=== PATIENT | female | born 1980 | race Two or more races ===

== ENCOUNTER 2017-04-02 09:42 | Emergency (ER) | payer BC, OTHER ==
[~2017-04-02] VITALS: Ht 162.6 cm; Wt 86.2 kg
[2017-04-02 10:27] VITALS: BP 131/94
[2017-04-02] MEDS ORDERED: KETOROLAC TROMETH 60MG/2ML VIAL IM ONE (11:00)
[2017-04-02] MEDS ORDERED: ONDANSETRON ODT 4 MG TAB PO ONE (11:00)
== END 2017-04-02 11:15 | disposition home or self-care (01) ==
LOC: ER 09:42 → EDBD 09:42 → ER 11:15
DX: R51 Headache (principal); R42 Dizziness and giddiness; R53.1 Weakness; R11.0 Nausea; Z90.710 Acquired absence of both cervix and uterus; Z90.49 Acquired absence of other specified parts of digestive tract
CPT/HCPCS: 70450; 96372; 99284; J1885; Q0162

== ENCOUNTER 2017-08-27 09:50 | Emergency (ER) | payer BC, MEDICAID ==
[~2017-08-27] VITALS: Ht 162.6 cm; Wt 89.4 kg
[2017-08-27 10:08] VITALS: BP 143/87
== END 2017-08-27 11:53 | disposition home or self-care (01) ==
LOC: ER 09:50
DX: N64.4 Mastodynia (principal); Z90.49 Acquired absence of other specified parts of digestive tract; Z90.710 Acquired absence of both cervix and uterus; Z88.8 Allergy status to other drugs, medicaments and biological substances
CPT/HCPCS: 76642

== ENCOUNTER → 2018-01-06 | Outpatient (CLI) | payer BC, MEDICAID ==
[2018-01-06 09:19] LABS: Basophils # (auto) 0 uL; Basophils % (auto) 0.6 % (0.0-2.0); Eosinophils # (auto) 0.1 uL; Eosinophils % (auto) 1.6 % (0.0-7.0); Hematocrit 38.9 % (36.0-46.0); Hemoglobin 12.9 g/dL (12.2-16.2); Lymphocytes % (auto) 29.9 % (10.0-50.0); Mean Corpuscular Hgb Conc. 33.2 g/dL (32.0-36.0); Mean Corpuscular Volume 84.3 fL (80.0-100.0); Monocytes # (auto) 0.3 uL; Monocytes % (auto) 4.6 % (0.0-12.0); Neutrophils # (auto) 4.3 uL; Neutrophils % (auto) 63.3 % (37.0-80.0); Platelet Count (auto) 266 10^3/uL (140-450); Red Blood Cells 4.61 10^6/uL (4.0-5.20); Red Cell Distribution Width 14.1 % (11.8-14.3); White Blood Cell 6.7 10^3/uL (4.4-10.8)
[2018-01-06 09:22] LABS: Urine Bacteria NONE SEEN /hpf (None Seen); Urine Blood TRACE /uL (Negative); Urine Mucus FEW (None Seen); Urine Specific Gravity 1.029 (1.001-1.035); Urine WBC 1 /hpf (0 - 5)
[2018-01-06 10:09] LABS: Albumin 3.9 g/dL (3.4-5.0); BUN/Creatinine Ratio 14.7; Bilirubin, Total 0.6 mg/dL (0.2-1.0); Calcium 8.8 mg/dL (8.5-10.1); Potassium 4.3 mmol/L (3.5-5.1); Total Protein 7.5 g/dL (6.4-8.2)
[2018-01-06 10:13] LABS: Follicle Stimulating Hormone 7.49 IU/L (SEE BELOW); Free T4 (Free Thyroxine) 1.12 ng/dL (0.89-1.76)
== END | disposition home or self-care (01) ==
LOC: LAB 08:03
PROVIDERS: ATTEND Internal Medicine
DX: R23.2 Flushing (principal); E11.9 Type 2 diabetes mellitus without complications; E78.00 Pure hypercholesterolemia, unspecified; E03.9 Hypothyroidism, unspecified; N18.2 Chronic kidney disease, stage 2 (mild)
CPT/HCPCS: 36415; 80053; 80061; 81001; 83001; 83036; 84439; 84443; 85025; 85652

== ENCOUNTER → 2018-01-09 | Outpatient (CLI) | payer BC, MEDICAID | END | disposition home or self-care (01) | LOC: LAB 09:36 | PROVIDERS: ATTEND Internal Medicine | DX: E11.22 Type 2 diabetes mellitus with diabetic chronic kidney disease (principal); N18.2 Chronic kidney disease, stage 2 (mild); E03.9 Hypothyroidism, unspecified; E78.00 Pure hypercholesterolemia, unspecified | CPT/HCPCS: 36415; 83036 ==

== ENCOUNTER 2018-10-06 08:57 | Emergency (ER) | payer BC ==
[~2018-10-06] VITALS: Ht 162.6 cm; Wt 86.2 kg
[2018-10-06 09:04] VITALS: BP 119/99
[2018-10-06] MEDS ORDERED: METHOCARBAMOL 500 MG TAB PO ONE (09:15)
[2018-10-06] MEDS ORDERED: HYDROcodone-ACET 5/325MG TAB PO ONE (09:15)
[2018-10-06] MEDS ORDERED: KETOROLAC TROMETH 60MG/2ML VIAL IM ONE (09:15)
== END 2018-10-06 10:12 | disposition home or self-care (01) ==
LOC: ER 08:57
DX: M54.5 Low back pain (principal); E11.9 Type 2 diabetes mellitus without complications; I10 Essential (primary) hypertension; Z90.710 Acquired absence of both cervix and uterus; Z90.49 Acquired absence of other specified parts of digestive tract; Z88.6 Allergy status to analgesic agent
CPT/HCPCS: 72100

== ENCOUNTER → 2019-02-10 | Outpatient (CLI) | payer BC, OTHER, MEDICAID ==
[2019-02-10 08:20] LABS: Cholesterol 209 mg/dL (< 200); HDL Cholesterol 50 mg/dL (40-59); LDL Cholesterol 131 mg/dL (< 100); Triglycerides 236 mg/dL (< 150)
== END | disposition home or self-care (01) ==
LOC: LAB 07:14
PROVIDERS: ATTEND Internal Medicine
DX: E11.9 Type 2 diabetes mellitus without complications (principal)
CPT/HCPCS: 36415; 80061; 83036

== ENCOUNTER → 2020-02-09 | Outpatient (CLI) | payer BC ==
[2020-02-09 07:38] LABS: Basophils # (auto) 0.1 10 ^3/uL (0-0.2); Eosinophils # (auto) 0.2 10 ^3/uL (0-0.8); Eosinophils % (auto) 2.3 % (0.0-7.0); Hematocrit 40.9 % (36.0-46.0); Hemoglobin 13.6 g/dL (12.2-16.2); Lymphocytes # (auto) 2.1 10 ^3/uL (0.4-5.4); Lymphocytes % (auto) 32.1 % (10.0-50.0); Mean Corpuscular Hemoglobin 27.9 pg (28.0-32.0); Mean Corpuscular Hgb Conc. 33.3 g/dL (32.0-36.0); Mean Corpuscular Volume 83.9 fL (80.0-100.0); Monocytes # (auto) 0.3 10 ^3/uL (0-1.3); Monocytes % (auto) 4.9 % (0.0-12.0); Neutrophils % (auto) 59.7 % (37.0-80.0); Nucleated Red Blood Cells % 0.2 %; Platelet Count (auto) 242 10^3/uL (140-450); Red Blood Cells 4.88 10^6/uL (4.0-5.20); Red Cell Distribution Width 13.6 % (11.8-14.3); White Blood Cell 6.7 10^3/uL (4.4-10.8)
[2020-02-09 08:00] LABS: Albumin 3.8 g/dL (3.4-5.0); Calcium 8.7 mg/dL (8.5-10.1); Potassium 4.1 mmol/L (3.5-5.1)
[2020-02-09 08:04] LABS: Bilirubin, Total 0.7 mg/dL (0.2-1.0); Total Protein 7.7 g/dL (6.4-8.2)
[2020-02-09 08:08] LABS: Free T4 (Free Thyroxine) 1.01 ng/dL (0.89-1.76)
[2020-02-09 10:38] LABS: Urine Bacteria NONE SEEN /hpf (None Seen); Urine Blood Negative /uL (Negative); Urine Mucus FEW (None Seen); Urine Specific Gravity 1.036 (1.001-1.035); Urine WBC <1 /hpf (0 - 5)
== END | disposition home or self-care (01) ==
LOC: LAB 07:11
PROVIDERS: ATTEND Internal Medicine
DX: E11.9 Type 2 diabetes mellitus without complications (principal)
CPT/HCPCS: 36415; 80053; 80061; 81001; 82043; 82607; 83036; 84439; 84443; 85025; 85652

== ENCOUNTER → 2020-06-02 | Outpatient (CLI) | payer BC ==
[2020-06-02 08:24] LABS: Cholesterol 202 mg/dL (< 200); HDL Cholesterol 41 mg/dL (40-59); LDL Cholesterol 149 mg/dL (< 100); Triglycerides 254 mg/dL (< 150)
== END | disposition home or self-care (01) ==
LOC: LAB 07:03
PROVIDERS: ATTEND Internal Medicine
DX: E11.9 Type 2 diabetes mellitus without complications (principal); E78.5 Hyperlipidemia, unspecified
CPT/HCPCS: 36415; 80061; 83036

== ENCOUNTER → 2022-02-15 | Outpatient (CLI) | payer BC ==
[2022-02-15 07:28] LABS: Basophils # (auto) 0.1 10 ^3/uL (0-0.2); Eosinophils # (auto) 0.2 10 ^3/uL (0-0.8); Hemoglobin 11.8 g/dL (12.2-16.2); Lymphocytes # (auto) 2.4 10 ^3/uL (0.4-5.4); Mean Corpuscular Hgb Conc. 32.3 g/dL (32.0-36.0); Monocytes # (auto) 0.3 10 ^3/uL (0-1.3); Nucleated Red Blood Cells % 0.1 %
[2022-02-15 07:32] LABS: Basophils % (auto) 1.1 % (0.0-2.0); Eosinophils % (auto) 2.8 % (0.0-7.0); Hematocrit 36.7 % (36.0-46.0); Lymphocytes % (auto) 31.8 % (10.0-50.0); Mean Corpuscular Hemoglobin 26.8 pg (28.0-32.0); Mean Corpuscular Volume 83.1 fL (80.0-100.0); Monocytes % (auto) 4.5 % (0.0-12.0); Neutrophils # (auto) 4.6 10 ^3/uL (1.6-8.6); Neutrophils % (auto) 59.8 % (37.0-80.0); Red Blood Cells 4.41 10^6/uL (4.0-5.20); Red Cell Distribution Width 13.7 % (11.8-14.3); White Blood Cell 7.6 10^3/uL (4.4-10.8)
[2022-02-15 07:47] LABS: Calcium 8.8 mg/dL (8.5-10.1); Magnesium 1.7 mg/dL (1.6-2.6); Potassium 3.9 mmol/L (3.5-5.1)
[2022-02-15 07:54] LABS: Albumin 3.8 g/dL (3.4-5.0); BUN/Creatinine Ratio 16.7; Bilirubin, Total 0.6 mg/dL (0.2-1.0); Total Protein 7.2 g/dL (6.4-8.2)
[2022-02-15 07:57] LABS: Urine Bacteria NONE SEEN /hpf (None Seen); Urine Blood 1+ /uL (Negative); Urine Hyaline Cast FEW /lpf (0 - 2); Urine Mucus FEW (None Seen); Urine Specific Gravity 1.029 (1.001-1.035); Urine WBC <1 /hpf (0 - 5)
[2022-02-15 07:58] LABS: Micro Albumin 14.7 mg/L (0-30.0)
[2022-02-15 11:18] LABS: Free T4 (Free Thyroxine) 1.12 ng/dL (0.89-1.76)
== END | disposition home or self-care (01) ==
LOC: LAB 06:45
PROVIDERS: ATTEND Internal Medicine
DX: E11.9 Type 2 diabetes mellitus without complications (principal); R25.2 Cramp and spasm
CPT/HCPCS: 36415; 80053; 80061; 81001; 82043; 82550; 82570; 82607; 83036; 83735; 84439; 84443; 85025; 85652

== ENCOUNTER → 2022-05-02 | Outpatient (CLI) | payer BC ==
[2022-05-02 07:22] LABS: Basophils # (auto) 0.1 10 ^3/uL (0-0.2); Eosinophils # (auto) 0.2 10 ^3/uL (0-0.8); Monocytes # (auto) 0.4 10 ^3/uL (0-1.3)
[2022-05-02 07:24] LABS: Hematocrit 37.6 % (36.0-46.0); Hemoglobin 12.2 g/dL (12.2-16.2); Lymphocytes # (auto) 2.5 10 ^3/uL (0.4-5.4); Lymphocytes % (auto) 39.4 % (10.0-50.0); Mean Corpuscular Hemoglobin 27.1 pg (28.0-32.0); Mean Corpuscular Hgb Conc. 32.4 g/dL (32.0-36.0); Mean Corpuscular Volume 83.9 fL (80.0-100.0); Monocytes % (auto) 6.4 % (0.0-12.0); Neutrophils # (auto) 3.2 10 ^3/uL (1.6-8.6); Neutrophils % (auto) 50.2 % (37.0-80.0); Nucleated Red Blood Cells % 0.1 %; Red Blood Cells 4.48 10^6/uL (4.0-5.20); Red Cell Distribution Width 13.9 % (11.8-14.3); White Blood Cell 6.3 10^3/uL (4.4-10.8)
[2022-05-02 08:04] LABS: Alanine Aminotransferase 92 U/L (13-56); Aspartate Aminotransferase 67 U/L (15-37); LDL Cholesterol 126 mg/dL (< 100)
== END | disposition home or self-care (01) ==
LOC: LAB 07:03
PROVIDERS: ATTEND Internal Medicine
DX: E11.9 Type 2 diabetes mellitus without complications (principal); E78.5 Hyperlipidemia, unspecified; D64.9 Anemia, unspecified
CPT/HCPCS: 36415; 82607; 83036; 83540; 83721; 84450; 84460; 85025

== ENCOUNTER 2023-01-08 11:28 | Inpatient (IN) | payer BC ==
[~2023-01-08] VITALS: Ht 162.6 cm; Wt 91.0 kg
[2023-01-08] MEDS ORDERED: AZITHROMYCIN 250 MG TAB PO ONE (12:15)
[2023-01-08] MEDS ORDERED: cefTRIAXone SOD 1,000 MG VL IV ONE (12:15)
[2023-01-08] MEDS ORDERED: SODIUM CHLORIDE 0.9% 1,000 ML IV ONE ×2 (12:15→15:00)
[2023-01-08] MEDS ORDERED: cefTRIAXone 1GM/50ML D5W 50 ML IV ONE (13:15)
[2023-01-08 13:18] LABS: Basophils # (auto) 0 10 ^3/uL (0-0.2); Basophils % (auto) 0.7 % (0.0-2.0); Eosinophils # (auto) 0.1 10 ^3/uL (0-0.8); Eosinophils % (auto) 0.9 % (0.0-7.0); Hematocrit 37.7 % (36.0-46.0); Hemoglobin 12.4 g/dL (12.2-16.2); Lymphocytes # (auto) 0.5 10 ^3/uL (0.4-5.4); Lymphocytes % (auto) 8.1 % (10.0-50.0); Mean Corpuscular Hemoglobin 27.1 pg (28.0-32.0); Mean Corpuscular Hgb Conc. 32.8 g/dL (32.0-36.0); Mean Corpuscular Volume 82.7 fL (80.0-100.0); Monocytes # (auto) 0.4 10 ^3/uL (0-1.3); Monocytes % (auto) 6.2 % (0.0-12.0); Neutrophils # (auto) 5.2 10 ^3/uL (1.6-8.6); Neutrophils % (auto) 84.1 % (37.0-80.0); Nucleated Red Blood Cells % 0.1 %; Red Blood Cells 4.56 10^6/uL (4.0-5.20); Red Cell Distribution Width 14.7 % (11.8-14.3); White Blood Cell 6.1 10^3/uL (4.4-10.8)
[2023-01-08] MEDS ORDERED: KETOROLAC TROMETH 60MG/2ML VIAL IM ONE (13:30)
[2023-01-08 13:51] LABS: Potassium 3.8 mmol/L (3.5-5.1)
[2023-01-08 13:59] LABS: Albumin 4.1 g/dL (3.4-5.0); Bilirubin, Total 0.6 mg/dL (0.2-1.0); Calcium 8.3 mg/dL (8.5-10.1); Total Protein 7.9 g/dL (6.4-8.2)
[2023-01-08] MEDS ORDERED: DOCUSATE SOD 100 MG CAP PO PRN (15:00)
[2023-01-08] MEDS ORDERED: MORPHINE SULFATE INJ 2 MG/ml SYRG IV PRN (15:00)
[2023-01-08] MEDS ORDERED: DexAMETHasone SOD PHOS 10MG/1ML VIAL INJ IV ONE (15:15)
[2023-01-08 15:55] LABS: Lactic Acid w/Reflex 3.3 mmol/L (0.4-2.0)
[2023-01-08 18:11] LABS: Urine Bacteria FEW /hpf (None Seen); Urine Blood TRACE /uL (Negative); Urine Mucus FEW (None Seen); Urine Specific Gravity 1.021 (1.001-1.035); Urine WBC 1 /hpf (0 - 5)
[2023-01-08 23:43] VITALS: BP 110/67
[2023-01-09] MEDS ORDERED: ERGO1CAP12 PO (00:29)
[2023-01-09] MEDS ORDERED: NAPR-957 PO (00:29)
[2023-01-09] MEDS ORDERED: METF-371 PO (00:29)
[2023-01-09 05:00] VITALS: BP 122/76
[2023-01-09 06:01] LABS: Basophils # (auto) 0 10 ^3/uL (0-0.2); Basophils % (auto) 0.4 % (0.0-2.0); Eosinophils # (auto) 0 10 ^3/uL (0-0.8); Hematocrit 32.9 % (36.0-46.0); Hemoglobin 11.1 g/dL (12.2-16.2); Lymphocytes # (auto) 0.9 10 ^3/uL (0.4-5.4); Lymphocytes % (auto) 18.8 % (10.0-50.0); Mean Corpuscular Hemoglobin 27.6 pg (28.0-32.0); Mean Corpuscular Hgb Conc. 33.6 g/dL (32.0-36.0); Monocytes # (auto) 0.4 10 ^3/uL (0-1.3); Monocytes % (auto) 8.6 % (0.0-12.0); Neutrophils # (auto) 3.6 10 ^3/uL (1.6-8.6); Neutrophils % (auto) 72.2 % (37.0-80.0); Nucleated Red Blood Cells % 0.1 %; Red Blood Cells 4.01 10^6/uL (4.0-5.20); Red Cell Distribution Width 14.4 % (11.8-14.3)
[2023-01-09 06:14] LABS: Potassium 3.9 mmol/L (3.5-5.1)
[2023-01-09 06:19] LABS: Albumin 3.5 g/dL (3.4-5.0); BUN/Creatinine Ratio 12.9 (10.0-20.0); Bilirubin, Total 0.3 mg/dL (0.2-1.0); Total Protein 6.9 g/dL (6.4-8.2)
[2023-01-09 09:00] VITALS: BP 114/71
[2023-01-09] MEDS ORDERED: THROAT LOZENGES(CEPASTAT) MT PRN (11:15)
[2023-01-09] MEDS ORDERED: OSELTAMIVIR 75 MG CAP PO ONE (11:15)
[2023-01-09] MEDS ORDERED: IBUPROFEN 600 MG TAB PO PRN (11:15)
[2023-01-09] MEDS ORDERED: DEXTROSE (50%) 50ML SYRG IV PRN (11:15)
[2023-01-09 11:20] VITALS: BP 114/71
[2023-01-09] MEDS: cefTRIAXone 1GM/50ML D5W 50 ML IV SCH (11:25)
[2023-01-09] MEDS ORDERED: ALBUTEROL SULF 2.5 MG/0.5ML(0.5%) NEB SOLN NEB SCH (12:00)
[2023-01-09] MEDS: SODIUM CHLORIDE 0.9% 1,000 ML IV SCH ×3 (12:34→21:47)
[2023-01-09] MEDS: ACCU-CHEK COMFORT CURVE STRIP VI SCH ×3 (12:43→21:31)
[2023-01-09] MEDS: InsuLIN REG 1unit/0.01ml Soln (100units/ml) SC SCH ×3 (12:46→21:43)
[2023-01-09 13:00] VITALS: BP 109/66
[2023-01-09] MEDS ORDERED: ACETAMINOPHEN 325 MG TAB PO PRN (14:00)
[2023-01-09] MEDS: ONDANSETRON HCL 4 MG/2 ML VIAL IV PRN (15:14)
[2023-01-09 17:00] VITALS: BP 109/64
[2023-01-09] MEDS: ALBUTEROL SULF 2.5 MG/0.5ML(0.5%) NEB SOLN NEB SCH (20:32)
[2023-01-09] MEDS: FAMOTIDINE 20 MG TAB PO SCH (21:30)
[2023-01-09] MEDS: OSELTAMIVIR 75 MG CAP PO SCH (21:30)
[2023-01-09 22:00] VITALS: BP 116/74
[2023-01-10 05:00] VITALS: BP 119/70
[2023-01-10 06:08] LABS: Basophils # (auto) 0 10 ^3/uL (0-0.2); Basophils % (auto) 0.6 % (0.0-2.0); Eosinophils # (auto) 0 10 ^3/uL (0-0.8); Eosinophils % (auto) 0.8 % (0.0-7.0); Hematocrit 32.4 % (36.0-46.0); Hemoglobin 10.7 g/dL (12.2-16.2); Lymphocytes # (auto) 1.6 10 ^3/uL (0.4-5.4); Lymphocytes % (auto) 33.4 % (10.0-50.0); Mean Corpuscular Hemoglobin 27.3 pg (28.0-32.0); Mean Corpuscular Volume 82.8 fL (80.0-100.0); Monocytes # (auto) 0.4 10 ^3/uL (0-1.3); Monocytes % (auto) 8.2 % (0.0-12.0); Neutrophils # (auto) 2.7 10 ^3/uL (1.6-8.6); Nucleated Red Blood Cells % 0.1 %; Red Blood Cells 3.92 10^6/uL (4.0-5.20); Red Cell Distribution Width 14.9 % (11.8-14.3); White Blood Cell 4.7 10^3/uL (4.4-10.8)
[2023-01-10] MEDS: ACCU-CHEK COMFORT CURVE STRIP VI SCH ×4 (06:22→21:03)
[2023-01-10 06:23] LABS: Albumin 3.2 g/dL (3.4-5.0); Calcium 7.5 mg/dL (8.5-10.1); Potassium 3.5 mmol/L (3.5-5.1)
[2023-01-10] MEDS: InsuLIN REG 1unit/0.01ml Soln (100units/ml) SC SCH (06:26)
[2023-01-10] MEDS: ALBUTEROL SULF 2.5 MG/0.5ML(0.5%) NEB SOLN NEB SCH ×3 (06:26→18:39)
[2023-01-10 06:27] LABS: BUN/Creatinine Ratio 14.1 (10.0-20.0)
[2023-01-10 06:28] LABS: Bilirubin, Total 0.2 mg/dL (0.2-1.0); Total Protein 6.2 g/dL (6.4-8.2)
[2023-01-10] MEDS: ONDANSETRON HCL 4 MG/2 ML VIAL IV PRN ×2 (08:17→23:11)
[2023-01-10] MEDS: OSELTAMIVIR 75 MG CAP PO SCH ×2 (08:28→21:03)
[2023-01-10] MEDS: FAMOTIDINE 20 MG TAB PO SCH ×2 (08:28→21:03)
[2023-01-10] MEDS: cefTRIAXone 1GM/50ML D5W 50 ML IV SCH (08:28)
[2023-01-10 08:30] VITALS: BP 120/82
[2023-01-10] MEDS: SODIUM CHLORIDE 0.9% 1,000 ML IV SCH ×2 (12:16→23:52)
[2023-01-10] MEDS: AZITHROMYCIN 250 MG TAB PO SCH (12:17)
[2023-01-10 12:53] VITALS: BP 115/70
[2023-01-10 16:29] VITALS: BP 123/76
[2023-01-10] MEDS: metFORMIN HYDROCHLORIDE 850 MG TAB PO SCH (18:06)
[2023-01-10 22:00] VITALS: BP 110/67
[2023-01-11 05:00] VITALS: BP 111/68
[2023-01-11] MEDS: ACCU-CHEK COMFORT CURVE STRIP VI SCH ×2 (05:36→11:37)
[2023-01-11 05:52] LABS: Basophils # (auto) 0 10 ^3/uL (0-0.2); Basophils % (auto) 0.5 % (0.0-2.0); Eosinophils # (auto) 0 10 ^3/uL (0-0.8); Hemoglobin 10.4 g/dL (12.2-16.2); Lymphocytes # (auto) 1.8 10 ^3/uL (0.4-5.4); Monocytes # (auto) 0.3 10 ^3/uL (0-1.3); Neutrophils # (auto) 2.1 10 ^3/uL (1.6-8.6); White Blood Cell 4.3 10^3/uL (4.4-10.8)
[2023-01-11 05:54] LABS: Hematocrit 32.1 % (36.0-46.0); Lymphocytes % (auto) 42.4 % (10.0-50.0); Mean Corpuscular Hemoglobin 26.8 pg (28.0-32.0); Mean Corpuscular Hgb Conc. 32.5 g/dL (32.0-36.0); Mean Corpuscular Volume 82.3 fL (80.0-100.0); Monocytes % (auto) 7.4 % (0.0-12.0); Neutrophils % (auto) 48.7 % (37.0-80.0); Nucleated Red Blood Cells % 0.2 %; Red Cell Distribution Width 14.7 % (11.8-14.3)
[2023-01-11] MEDS: ALBUTEROL SULF 2.5 MG/0.5ML(0.5%) NEB SOLN NEB SCH ×2 (06:06→11:36)
[2023-01-11 06:09] LABS: Potassium 3.4 mmol/L (3.5-5.1)
[2023-01-11 06:18] LABS: BUN/Creatinine Ratio 11.4 (10.0-20.0); Bilirubin, Total 0.3 mg/dL (0.2-1.0); Calcium 7.4 mg/dL (8.5-10.1); Total Protein 6.1 g/dL (6.4-8.2)
[2023-01-11] MEDS: metFORMIN HYDROCHLORIDE 850 MG TAB PO SCH (09:18)
[2023-01-11] MEDS: OSELTAMIVIR 75 MG CAP PO SCH (09:18)
[2023-01-11] MEDS: FAMOTIDINE 20 MG TAB PO SCH (09:18)
[2023-01-11] MEDS: AZITHROMYCIN 250 MG TAB PO SCH (09:18)
[2023-01-11] MEDS: ONDANSETRON HCL 4 MG/2 ML VIAL IV PRN (10:18)
[2023-01-11] MEDS ORDERED: POTASSIUM EFFERVESENT TAB 25 MEQ GT ONE (10:30)
[2023-01-11] MEDS ORDERED: ZOFR4T PO (10:51)
[2023-01-11] MEDS ORDERED: PANT40T PO (10:51)
[2023-01-11] MEDS ORDERED: OSEL75CA5 PO (10:51)
[2023-01-11] MEDS ORDERED: AZIT500T66 PO (10:51)
[2023-01-11] MEDS ORDERED: POTASSIUM EFFERVESENT TAB 25 MEQ PO ONE (11:45)
== END 2023-01-11 12:11 | disposition home or self-care (01) | DRG 153 ==
LOC: ER 11:28 → TELE 15:04 → TELE-EAST 21:45 → EAST 01-11 02:37
PROVIDERS: ADMIT Nurse Practitioner Family; ATTEND Internal Medicine
DX: J11.1 Influenza due to unidentified influenza virus with other respiratory manifestations (principal); E86.0 Dehydration; K76.0 Fatty (change of) liver, not elsewhere classified; Z20.822 Contact with and (suspected) exposure to COVID-19; E11.9 Type 2 diabetes mellitus without complications; E66.9 Obesity, unspecified; Z68.34 Body mass index [BMI] 34.0-34.9, adult; Z90.710 Acquired absence of both cervix and uterus; Z88.8 Allergy status to other drugs, medicaments and biological substances; Z90.49 Acquired absence of other specified parts of digestive tract
CPT/HCPCS: 36415; 71045; 76705; 80053; 81001; 82550; 82962; 83036; 83605; 84484; 84702; 85025; 86308; 87040; 87070; 87426; 87804; 87880; 94640; 96361; 96372; 96374; 96375; G0378; J0696; J1100; J1815; J1885; J2405

== ENCOUNTER 2023-03-22 08:04 | Emergency (ER) | payer BC, MEDICAID ==
[~2023-03-22] VITALS: Ht 162.6 cm; Wt 87.1 kg
[~2023-03-22 08:04] MED LIST: AZIT500T66 PO; ERGO1CAP12 PO; METF-371 PO; NAPR-957 PO; OSEL75CA5 PO; PANT40T PO; ZOFR4T PO
[2023-03-22 08:17] VITALS: BP 124/68; PULSE 99; RESP 18; TEMP 98.3; O2SAT 98
[2023-03-22] MEDS ORDERED: diphenhdrAMINE HCL 50 MG/1 ML VL IM ONE (08:45)
[2023-03-22] MEDS ORDERED: DexAMETHasone SOD PHOS 10MG/1ML VIAL INJ IM ONE (08:45)
[2023-03-22] MEDS ORDERED: DIPH25CA66 PO (09:24)
== END 2023-03-22 09:30 | disposition home or self-care (01) ==
LOC: ER 08:04
DX: T78.40XA Allergy, unspecified, initial encounter (principal); E11.9 Type 2 diabetes mellitus without complications; Z90.49 Acquired absence of other specified parts of digestive tract; Z90.710 Acquired absence of both cervix and uterus; Z79.2 Long term (current) use of antibiotics; Z79.84 Long term (current) use of oral hypoglycemic drugs; Z79.899 Other long term (current) drug therapy; Z88.8 Allergy status to other drugs, medicaments and biological substances; Y92.89 Other specified places as the place of occurrence of the external cause
CPT/HCPCS: 96372; 99284; J1100; J1200

== ENCOUNTER → 2023-05-05 | Outpatient (CLI) | payer MEDICAID ==
[~2023-05-05] MED LIST changes: +DIPH25CA66 PO
[2023-05-05 07:20] LABS: Basophils # (auto) 0.1 10 ^3/uL (0-0.2); Eosinophils # (auto) 0.2 10 ^3/uL (0-0.8); Eosinophils % (auto) 2.1 % (0.0-7.0); Hemoglobin 12.4 g/dL (12.2-16.2); Lymphocytes # (auto) 2.4 10 ^3/uL (0.4-5.4); Lymphocytes % (auto) 31.2 % (10.0-50.0); Mean Corpuscular Hemoglobin 27.1 pg (28.0-32.0); Mean Corpuscular Hgb Conc. 32.6 g/dL (32.0-36.0); Mean Corpuscular Volume 83.1 fL (80.0-100.0); Monocytes # (auto) 0.4 10 ^3/uL (0-1.3); Monocytes % (auto) 4.8 % (0.0-12.0); Neutrophils # (auto) 4.7 10 ^3/uL (1.6-8.6); Neutrophils % (auto) 60.9 % (37.0-80.0); Red Blood Cells 4.57 10^6/uL (4.0-5.20); Red Cell Distribution Width 14.4 % (11.8-14.3); White Blood Cell 7.7 10^3/uL (4.4-10.8)
[2023-05-05 08:08] LABS: Alanine Aminotransferase 49 U/L (7-40); Alkaline Phosphatase 64 U/L (46-116); Calcium 9.1 mg/dL (8.5-10.1); Carbon Dioxide 23 mmol/L (20-30); Chloride 105 mmol/L (98-107); Glucose 166 mg/dL (74-106); Triglycerides 239 mg/dL (< 150)
[2023-05-05 08:09] LABS: Albumin 4.6 g/dL (3.2-4.8); Anion Gap 9 (5-15); Aspartate Aminotransferase 33 U/L (13-40); BUN/Creatinine Ratio 12.3 (10.0-20.0); Bilirubin, Total 0.9 mg/dL (0.2-1.0); Blood Urea Nitrogen 8 mg/dL (9-23); Cholesterol 183 mg/dL (< 200); HDL Cholesterol 37 mg/dL (40-59); LDL Cholesterol 124 mg/dL (< 100); Sodium 137 mmol/L (136-145); Total Protein 7.1 g/dL (5.7-8.2)
[2023-05-05 11:24] LABS: Free T4 (Free Thyroxine) 1.06 ng/dL (0.89-1.76)
== END | disposition home or self-care (01) ==
LOC: LAB 07:02
PROVIDERS: ATTEND Nurse Practitioner Family
DX: E11.65 Type 2 diabetes mellitus with hyperglycemia (principal); E78.5 Hyperlipidemia, unspecified; E53.8 Deficiency of other specified B group vitamins
CPT/HCPCS: 36415; 80053; 80061; 82306; 82607; 83036; 84439; 84443; 85025

== ENCOUNTER 2024-06-05 08:47 | Emergency (ER) | payer MEDICAID ==
[~2024-06-05] VITALS: Ht 162.6 cm; Wt 85.5 kg
--- NOTE | 2024-06-05 09:00 | ED.PDOC ---
Eye-HPI HPI Comments A 43 YEAR OLD FEMALE PRESENTS TO THE ED WITH COMPLAINT OF SORE THROAT AND COUGH. PATIENT STATES SHE HAS BEEN EXPERIENCING A SORE THROAT, COUGH, CONGESTION, BODY ACHES, AND FEVER THAT COMES AND GOES FOR THE PAST 1 WEEK. PATIENT DENIES SHORTNESS OF BREATH, CHEST PAIN, ABDOMINAL PAIN, NAUSEA, VOMITING, HEADACHE, OR OTHER COMPLAINTS. NO OTHER SYMPTOMS OR MODIFYING FACTORS AT THIS TIME. PATIENT IS ALERT, ORIENTED X 4, AND HAS STEADY GAIT. Time Seen by MD: 08:48 Primary Care Provider: Jael Reviewed Notes: Nurses Notes, Medications, Allergies Allergies: Coded Allergies: Ibuprofen (Verified Allergy, Mild, 01/09/23) Naproxen (Verified Allergy, Unknown, 05/17/15) Home Meds Active Scripts Promethazine-Dm (Promethazine Dm 6.25-15 mg/5Ml) 1 Purnima Purnima, 5 ML PO TID, #180 ML Prov:MANJIT CONTRERAS 06/05/24 Azithromycin (Azithromycin) 500 Mg Tab, 1 TAB PO DAILY, #5 TAB Prov:MANJIT CONTRERAS 06/05/24 Diphenhydramine Hcl (Benadryl Allergy) 25 Mg Cap, 1 CAP PO Q4HPRN, #30 CAP 1 Refill Prov:MIRTA SOMMERS NP 03/22/23 Pantoprazole Sodium Sesquihydr (Pantoprazole Sodium) 40 Mg Tab, 40 MG PO DAILY for 7 Days, #7 TAB Prov:NIKUNJ NEGRO MD 01/11/23 Ondansetron Odt 4MG Tab (ZOFRAN PO) 4 Mg Tb, 4 MG PO Q6HPRN PRN, #10 TAB ODT TAB-DISSOLVE IN MOUTH, THEN SWALLOW Prov:NIKUNJ NEGRO MD 01/11/23 Oseltamivir Phosphate (Tamiflu) 75 Mg Cap, 1 CAP PO BID, #6 CAP Prov:NIKUNJ NEGRO MD 01/11/23 Azithromycin (Azithromycin) 500 Mg Tab, 1 TAB PO DAILY, #3 TAB Prov:NIKUNJ NEGRO MD 01/11/23 Reported Medications Naproxen (Naproxen) 375 Mg Tab, 1 TAB PO BID 01/09/23 Ergocalciferol (Vitamin D) 50,000 Unit Cap, 1 CAP PO QWEEKLY 01/09/23 Metformin Hydrochloride (Metformin Hcl) 850 Mg Tab, 1 TAB PO BID 01/09/23 Information Source: Patient Mode of Arrival: Ambulatory Timing: Days Duration: Since onset, Days Prehospital treatment: None Quality: Pain, Red Lids: Normal Conjunctiva: Normal Cornea: Normal Pupils: Normal EOM: Normal Fundus: Normal Slit lamp exam: Normal Anterior chamber: Normal Mouth Location: Pharynx Mouth: Normal ENT Ear Exam: Normal, Normal, Normal Nose: Normal Sinuses: Normal Oropharynx: Red Onset: Spontaneous Throat Exposed to: None History of: None Last Tetanus: Unknown Modifying factors: Nothing Associated signs and symptoms: Fever, Nasal Symptoms, Sore Throat Past Medical History PAST MEDICAL HISTORY: DM Surgical History: Cholecystectomy, Hysterectomy CONSTRUCTION CODE ADMINISTRATOR History: No Pertinent CONSTRUCTION CODE ADMINISTRATOR History Family History Family History: No family hx of DM, No family hx of HTN Social History Smoker: Non-Smoker Alcohol: Denies ETOH Use Drugs: Denies Drug Use Lives In: Home Constitutional: reports: fever; denies: chills, diaphoresis, fatigue, malaise, sweats, weakness, others EENTM: reports: nose congestion, throat pain, throat swelling; denies: blurred vision, double vision, ear bleeding, ear discharge, ear drainage, ear pain, ear ringing, eye pain, eye redness, hearing loss, mouth pain, mouth swelling, nasal discharge, nose bleeding, nose pain, photophobia, tearing, voice changes, others Respiratory: reports: cough; denies: hemoptysis, orthopnea, SOB at rest, shortness of breath, SOB with excertion, stridor, wheezing, others Cardiovascular: denies: chest pain, dizzy spells, diaphoresis, Dyspnea on exertion, edema, irregular heart beat, left arm pain, lightheadedness, p alpitations, PND, syncope, others Gastrointestinal: denies: abdomen distended, abdominal pain, blood streaked bowels, constipated, diarrhea, dysphagia, difficulty swallowing, hematemesis, melena, nausea, poor appetite, poor fluid intake, rectal bleeding, rectal pain, vomiting, others Genitourinary: denies: abnormal vagina bleeding, burning, dyspareunia, dysuria, flank pain, frequency, hematuria, incontinence, pain, , vagina discharge, urgency, others Neurological: denies: dizziness, fainting, headache, left sided numbness, left sided weakness, numbness, paresthesia, pre-existing deficit, right sided numbness, right sided weakness, seizure, speech problems, tingling, tremors, weakness, others Musculoskeletal: reports: muscle pain; denies: back pain, gout, joint pain, leena int swelling, muscle stiffness, neck pain, others Integumetry: denies: bruises, change in color, change in hair/nails, dryness, laceration, lesions, lumps, rash, wounds, others Allergic/Immunocompromised: denies: Difficulty Healing, Frequent Infections, Hives, Itching, others Hematologic/Lymphatic: denies: anemia, blood clots, easy bleeding, easy bruising, swollen glands, others Endocrine: denies: excessive hunger, excessive sweating, excessive thirst, excessive urination, flushing, intolerance to cold, intolerance to heat, unexplained weight gain, unexplained weight loss, others Psychiatric: denies: anxiety, bipolar disorder, depression, hopeless, panic disorder, schizophrenia, sleepless, suicidal, others All Other Systems: Reviewed and Negative Physical Exam General Appearance: No Apparent Distress, Normal HEENT: PERRL/EOMI, Pharyngeal Erythema (PHARYNX SWELLING, NO EXUDATES. ), TMs Normal Neck: Full Range of Motion, Non-Tender, Normal, Normal Inspection Respiratory: Chest Non-Tender, Expiration, No Accessory Muscle Use, No Respir atory Distress, Rhonchi Cardiovascular: No Edema, No JVD, No Murmur, No Gallop, Normal Peripheral Pulses, Regular Rate/Rhythm Breast Exam: Deferred Gastrointestinal: No Organomegaly, Non Tender, No Pulsatile Mass, Normal Bowel Sounds, Soft Genitalia: Deferred Pelvic: Deferred Rectal: Deferred Extremities: No calf tenderness, Normal capillary refill, Normal inspection, Normal range of motion, Non-tender, No pedal edema Musculoskeletal : Apperance: Normal Neurologic: Alert, trouble locator test desk II-XII nml as Tested, No Motor Deficits, Normal Affect, Normal Mood, No Sensory Deficits Cerebellar Function: Normal Reflexes: Normal Skin: Dry, Normal Color, Warm Peripheral Pulses: 2+ carotid (R), 2+ carotid (L) Lymphatic: No Adenopathy Was a procedure done? Was a procedure done?: No EENT DIFF Eye: N/A Ear: Otitis Media, Pharyngitis, Sinusitis Nose: N/A Mouth: N/A Sore Throat: Pharyngitis, Streptococcal, Viral Pharyngitis, URI X-Ray, Labs, Meds, VS Vital Signs Date Time Temp Pulse Resp B/P (MAP) Pulse Ox O2 Delivery O2 Flow Rate FiO2 06/05/24 09:39 18 96 Room Air 06/05/24 09:39 97.3 97 18 158/96 (116) 96 97.3 06/05/24 09:15 98.8 111 20 118/82 (94) 96 Current Medications Medications (Trade) Dose Ordered Sig/Jolie Route Start Time Stop Time Status Last Admin Ceftriaxone Sodium (Rocephin) 1,000 mg ONCE ONCE IM 06/05/24 09:30 06/05/24 09:31 DC 06/05/24 09:54 EXAM: XR Chest, 2 Views CLINICAL INDICATION: COUGH TECHNIQUE: Frontal and lateral views of the chest. COMPARISON: None FINDINGS: LUNGS AND PLEURAL SPACES: Unremarkable. No consolidation. No pneumothorax. HEART: Unremarkable. No cardiomegaly. MEDIASTINUM: Unremarkable. Normal mediastinal contour. BONES/JOINTS: Unremarkable. No acute fracture. OTHER FINDINGS: . . . IMPRESSION: No acute cardiopulmonary process. HS:Y ATED BY: SARBJIT DE JESUS MD DICTATED DATE/TIME: 06/05/24931 SIGNED BY: SARBJIT DE JESUS MD SIGNED DATE/TIME: 06/05/24931 CC: X-Ray, Labs, Meds, VS Comment TREATMENT: ROCEPHIN 1 G IM BASED ON MY CLINICAL EXAM FINDINGS AND THE FACT THAT THE PATIENT'S CHEST X-RAY IS NORMAL PER RADIOLOGIST'S INTERPRETATION, I HAVE DETERMINED THE PATIENT IS SAFE TO DISCHARGE AT THIS TIME. PATIENT WILL BE PRESCRIBED AZITHROMYCIN AND I HAVE INSTRUCTED HER TO FOLLOW-UP WITH HER PCP IN 1-2 DAYS. Images Reviewed?: Images reviewed and evaluated by me Time of 1ST Reevaluation: 10:20 Reevaluation 1ST: Improved Patient Education/Counseling: Diagnosis, Treatment, Need For Follow Up Family Education/Counseling: Diagnosis, Treatment, Need For Follow Up Medical Screening: No EMC Exist At This Time Departure 1 Departure Time of Disposition: 10:20 Impression: Primary Impression: Acute bronchitis Qualified Codes: J20.9 - Acute bronchitis, unspecified Additional Impression: Acute pharyngitis Qualified Codes: J02.9 - Acute pharyngitis, unspecified Disposition: HOME / SELF CARE / HOMELESS Condition: Stable Additional Instructions: FOLLOW-UP WITH PCP IN 1 TO 2 DAYS. TAKE MEDICATIONS PRESCRIBED. RETURN TO ED FOR ANY NEW OR WORSENING SYMPTOMS. e-Prescriptions Promethazine-Dm (Promethazine Dm 6.25-15 mg/5Ml) 1 Purnima Purnima 5 ML PO TID, #180 ML Prov: MANJIT CONTRERAS 06/05/24 Azithromycin (Azithromycin) 500 Mg Tab 1 TAB PO DAILY, #5 TAB Prov: MANJIT CONTRERAS 06/05/24 Discharged With: Self, Spouse Critical Care Note Critical Care Time?: No Stability Stability form required: No I personally scribed for MANJIT CONTRERAS ([email or web address]) on 06/05/24 at 09:51. Electronically submitted by Logan Shah ([email or web address]). MANJIT CONTRERAS Jun 05, 2024 09:00
--- NOTE | 2024-06-05 09:34 | DVH ---
EXAM: XR Chest, 2 Views CLINICAL INDICATION: COUGH TECHNIQUE: Frontal and lateral views of the chest. COMPARISON: None FINDINGS: LUNGS AND PLEURAL SPACES: Unremarkable. No consolidation. No pneumothorax. HEART: Unremarkable. No cardiomegaly. MEDIASTINUM: Unremarkable. Normal mediastinal contour. BONES/JOINTS: Unremarkable. No acute fracture. OTHER FINDINGS: . . . IMPRESSION: No acute cardiopulmonary process. HS:Y
[2024-06-05 09:39] VITALS: BP 158/96; PULSE 97; RESP 18; TEMP 97.3; O2SAT 96
[2024-06-05] MEDS: cefTRIAXone SOD 1,000 MG VL IM ONE (09:54)
[2024-06-05] MEDS ORDERED: PROM1SOL4 PO (10:00)
[2024-06-05] MEDS ORDERED: AZIT500T66 PO (10:00)
== END 2024-06-05 10:05 | disposition home or self-care (01) ==
LOC: ER 08:47
DX: J20.9 Acute bronchitis, unspecified (principal); J02.9 Acute pharyngitis, unspecified; Z88.6 Allergy status to analgesic agent; Z79.899 Other long term (current) drug therapy
CPT/HCPCS: 71046; 96372; 99283; J0696

== ENCOUNTER → 2024-06-08 | Outpatient (CLI) | payer MEDICAID ==
[~2024-06-08] MED LIST changes: +PROM1SOL4 PO
[2024-06-08 08:07] LABS: Basophils # (auto) 0.1 10 ^3/uL (0-0.2); Eosinophils # (auto) 0.2 10 ^3/uL (0-0.8); Eosinophils % (auto) 2.3 % (0.0-7.0); Hematocrit 39.4 % (36.0-46.0); Hemoglobin 13.1 g/dL (12.2-16.2); Lymphocytes # (auto) 2.3 10 ^3/uL (0.4-5.4); Mean Corpuscular Hemoglobin 27.4 pg (28.0-32.0); Mean Corpuscular Hgb Conc. 33.2 g/dL (32.0-36.0); Mean Corpuscular Volume 82.6 fL (80.0-100.0); Monocytes # (auto) 0.4 10 ^3/uL (0-1.3); Monocytes % (auto) 5.6 % (0.0-12.0); Neutrophils # (auto) 4.1 10 ^3/uL (1.6-8.6); Neutrophils % (auto) 58.1 % (37.0-80.0); Nucleated Red Blood Cells % 0.1 %; Platelet Count (auto) 313 10^3/uL (140-450); Red Blood Cells 4.77 10^6/uL (4.0-5.20); Red Cell Distribution Width 14.6 % (11.8-14.3)
[2024-06-08 08:31] LABS: Alanine Aminotransferase 175 U/L (7-40); Albumin 4.4 g/dL (3.2-4.8); Alkaline Phosphatase 76 U/L (46-116); Anion Gap 8 (5-15); Aspartate Aminotransferase 198 U/L (13-40); BUN/Creatinine Ratio 11.1 (10.0-20.0); Blood Urea Nitrogen 8 mg/dL (9-23); Calcium 9.6 mg/dL (8.7-10.4); Carbon Dioxide 24 mmol/L (20-31); Chloride 107 mmol/L (98-107); Glucose 185 mg/dL (74-106); LDL Cholesterol 132 mg/dL (< 100); Sodium 139 mmol/L (136-145); Triglycerides 222 mg/dL (< 150)
[2024-06-08 08:32] LABS: Bilirubin, Total 0.7 mg/dL (0.2-1.0); Cholesterol 193 mg/dL (< 200); HDL Cholesterol 38 mg/dL (40-59)
== END | disposition home or self-care (01) ==
LOC: LAB 07:23
PROVIDERS: ATTEND Internal Medicine
DX: E11.9 Type 2 diabetes mellitus without complications
CPT/HCPCS: 36415; 80053; 80061; 82306; 82607; 83036; 84443; 85025

== ENCOUNTER → 2024-07-09 | Outpatient (CLI) | payer MEDICAID ==
[2024-07-09 13:48] LABS: % Iron Saturation 22.6 % (15-50)
[2024-07-10 08:06] LABS: Complement C3 163 mg/dL (82-167); Rheumatoid Arthritis Factor <10.0 IU/mL (<14.0); Thyroid Peroxidase (TPO) Ab 13 IU/mL (0-34)
[2024-07-10 10:06] LABS: Anti-Nuclear Antibody Direct Negative (Negative); Anti-dsDNA Antibody 1 IU/mL (0-9); Antiscleroderma-70 Antibody <0.2 AI (0.0-0.9); RNP Antibody <0.2 AI (0.0-0.9); Sjogren's Anti-SS-A Antibody <0.2 AI (0.0-0.9); Sjogren's Anti-SS-B Antibody <0.2 AI (0.0-0.9); Smith Antibody <0.2 AI (0.0-0.9)
[2024-07-12 09:06] LABS: Antiparietal Cell Antibody 35.6 Units (0.0-20.0)
[2024-07-12 14:06] LABS: Actin (Smooth Muscle) Antibody 7 Units (0-19); Mitochondrial (M2) Antibody <20.0 Units (0.0-20.0)
== END | disposition home or self-care (01) ==
LOC: LAB 12:14
PROVIDERS: ATTEND Internal Medicine
DX: K76.0 Fatty (change of) liver, not elsewhere classified (principal); E11.9 Type 2 diabetes mellitus without complications
CPT/HCPCS: 82728; 83540; 83550; 86160; 86225; 86235; 86376; 86431

== ENCOUNTER 2025-04-04 06:22 | Outpatient (CLI) | payer MEDICAID ==
[2025-04-04 07:03] LABS: Albumin 4.4 g/dL (3.2-4.8); Alkaline Phosphatase 83 U/L (46-116); Anion Gap 10 (5-15); BUN/Creatinine Ratio 11.1 (10.0-20.0); Calcium 9.0 mg/dL (8.7-10.4); Carbon Dioxide 23 mmol/L (20-31); Chloride 104 mmol/L (98-107); Cholesterol 177 mg/dL (< 200); Potassium 4.2 mmol/L (3.5-5.1); Sodium 137 mmol/L (136-145); Total Protein 7.1 g/dL (5.7-8.2)
[2025-04-04 07:04] LABS: Bilirubin, Total 0.7 mg/dL (0.2-1.0)
[2025-04-04 07:09] LABS: Alanine Aminotransferase 132 U/L (7-40); Blood Urea Nitrogen 8 mg/dL (9-23); Glucose 213 mg/dL (74-106); HDL Cholesterol 39 mg/dL (40-59); Triglycerides 198 mg/dL (< 150)
[2025-04-04 07:18] LABS: Microalb/Creat Ratio, Urine 4.0
== END 2025-04-04 17:00 | disposition home or self-care (01) ==
LOC: LAB 06:22
PROVIDERS: ATTEND Internal Medicine
DX: E11.9 Type 2 diabetes mellitus without complications (principal); E78.5 Hyperlipidemia, unspecified
CPT/HCPCS: 36415; 80053; 80061; 82043; 82570; 83036